=== PATIENT | female | born 1975 | race Caucasian/White ===

== ENCOUNTER 2017-05-07 08:23 | Emergency (ER) | END 2017-05-07 10:26 | disposition home or self-care (01) ==

== ENCOUNTER 2017-08-30 07:13 | Day surgery (SDC) | END 2017-08-30 19:01 | disposition home or self-care (01) ==

== ENCOUNTER 2017-09-02 12:40 | Emergency (ER) | END 2017-09-02 16:54 | disposition home or self-care (01) ==

== ENCOUNTER 2017-09-20 15:26 | Emergency (ER) | END 2017-09-20 17:23 | disposition home or self-care (01) ==